=== PATIENT | male | born 1995 | race Caucasian/White ===

== ENCOUNTER 2016-10-01 20:19 | Emergency (ER) | payer BC, OTHER ==
[~2016-10-01] VITALS: Ht 172.7 cm; Wt 88.5 kg
--- NOTE | 2016-10-01 20:33 | ED Abdominal Pain ---
General Chief Complaint: Abdominal/GI Problems Stated Complaint: ABD PAIN Source of Information: Patient Exam Limitations: No Limitations History of Present Illness Time Seen By Provider: 20:31 Initial Comments To ER with pain to the right side of the abdomen in the lower quadrant that began earlier this afternoon. He's had some nausea with this but no vomiting. He states that he stood up from the table and felt an intense pain and nearly passed out because of pain. Since then has been a dull ache to the right lower quadrant. No diarrhea. No history of this pain. Timing/Duration: 4-6 Hours Severity/Quality: Moderate Location: RLQ Allergies and Home Medications Allergies Coded Allergies: No Known Drug Allergies (Unverified , 10/01/16) Home Medications No Active Prescriptions or Reported Meds Review of Systems Constitutional: see HPI, diaphoresis EENTM: No Symptoms Reported Respiratory: No Symptoms Reported Cardiovascular: No Symptoms Reported Gastrointestinal: See HPI, Abdominal Pain, Denies Constipated, Denies Diarrhea , Nausea Musculoskeletal: no symptoms reported Skin: no symptoms reported Psychiatric/Neurological: No Symptoms Reported Endocrine: No Symptoms Reported Past Jryiucc-Eztvmy-Tlzizw Hx Patient Social History Recent Foreign Travel: No Contact w/Someone Who Travel: No Physical Exam Vital Signs VS - Last 72 Hours, by Label 10/01/16 20:24 Temp 97.4 Pulse 75 Resp 20 B/P (MAP) 141/92 Pulse Ox 20 O2 Delivery Room Air Capillary Refill : General Appearance: WD/WN, no apparent distress HEENT: PERRL/EOMI, normal ENT inspection Neck: non-tender, full range of motion Respiratory: no respiratory distress, no accessory muscle use Gastrointestinal: normal bowel sounds, soft, tenderness Extremities: normal range of motion, non-tender Neurologic/Psychiatric: alert, normal mood/affect, oriented x 3 Skin: normal color, warm/dry Progress/Results/Core Measures Results/Orders Lab Results Laboratory Tests Test 10/01/16 20:30 10/01/16 21:04 Range/Units White Blood Count 8.0 4.3-11.0 10^3/uL Red Blood Count 5.14 4.35-5.85 10^6/uL Hemoglobin 14.5 13.3-17.7 G/DL Hematocrit 43 40-54 % Mean Corpuscular Volume 83 80-99 FL Mean Corpuscular Hemoglobin 28 25-34 PG Mean Corpuscular Hemoglobin Concent 34 32-36 G/DL Red Cell Distribution Width 12.9 10.0-14.5 % Platelet Count 226 130-400 10^3/uL Mean Platelet Volume 10.2 7.4-10.4 FL Neutrophils (%) (Auto) 57 42-75 % Lymphocytes (%) (Auto) 32 12-44 % Monocytes (%) (Auto) 8 0-12 % Eosinophils (%) (Auto) 3 0-10 % Basophils (%) (Auto) 1 0-10 % Neutrophils # (Auto) 4.5 1.8-7.8 X 10^3 Lymphocytes # (Auto) 2.5 1.0-4.0 X 10^3 Monocytes # (Auto) 0.7 0.0-1.0 X 10^3 Eosinophils # (Auto) 0.2 0.0-0.3 10^3/uL Basophils # (Auto) 0.0 0.0-0.1 10^3/uL Sodium Level 139 135-145 MMOL/L Potassium Level 3.3 L 3.6-5.0 MMOL/L Chloride Level 104 98-107 MMOL/L Carbon Dioxide Level 27 21-32 MMOL/L Anion Gap 8 5-14 MMOL/L Blood Urea Nitrogen 24 H 7-18 MG/DL Creatinine 1.06 0.60-1.30 MG/DL Estimat Glomerular Filtration Rate > 60 BUN/Creatinine Ratio 23 Glucose Level 139 H 70-105 MG/DL Calcium Level 9.2 8.5-10.1 MG/DL Total Bilirubin 0.4 0.1-1.0 MG/DL Aspartate Amino Transf (AST/SGOT) 19 5-34 U/L Alanine Aminotransferase (ALT/SGPT) 21 0-55 U/L Alkaline Phosphatase 33 L 40-136 U/L C-Reactive Protein High Sensitivity 0.10 0.00-0.50 MG/DL Total Protein 6.9 6.4-8.2 GM/DL Albumin 4.6 H 3.2-4.5 GM/DL Urine Color YELLOW Urine Clarity CLEAR Urine pH 5 5-9 Urine Specific [place] 1.020 1.016-1.022 Urine Protein NEGATIVE NEGATIVE Urine Glucose (UA) NEGATIVE NEGATIVE Urine Ketones NEGATIVE NEGATIVE Urine Nitrite NEGATIVE NEGATIVE Urine Bilirubin NEGATIVE NEGATIVE Urine Urobilinogen NORMAL NORMAL MG/DL Urine Leukocyte Esterase NEGATIVE NEGATIVE Urine RBC (Auto) NEGATIVE NEGATIVE Urine RBC NONE /HPF Urine WBC RARE /HPF Urine Squamous Epithelial Cells 0-2 /HPF Urine Crystals NONE /LPF Urine Bacteria NEGATIVE /HPF Urine Casts NONE /LPF Urine Mucus NEGATIVE /LPF Urine Culture Indicated NO My Orders Orders - CLARE GUIDO APRN Cbc With Automated Diff (10/01/16 20:30) Hs C Reactive Protein (10/01/16 20:30) Comprehensive Metabolic Panel (10/01/16 20:30) Ua Culture If Indicated (10/01/16 20:30) Saline Lock/Iv-Start (10/01/16 20:30) Ct Abd/Pelv W (Appendicitis) (10/01/16 20:30) Iohexol Injection (Omnipaque 350 Mg/Ml 1 (10/01/16 20:45) Ns (Ivpb) (Sodium Chloride 0.9% Ivpb Bag (10/01/16 20:45) Medications Given in ED Current Medications Medications Dose Ordered Sig/Coleman Route Start Time Stop Time Status Last Admin Dose Admin Iohexol 100 ml ONCE ONCE IV 10/01/16 20:45 10/01/16 20:46 UNV 10/01/16 20:43 100 ML Sodium Chloride 100 ml ONCE ONCE IV 10/01/16 20:45 10/01/16 20:46 UNV 10/01/16 20:44 80 ML Vital Signs/I&O Vital Sign - Last 12Hours 10/01/16 20:24 Temp 97.4 Pulse 75 Resp 20 B/P (MAP) 141/92 Pulse Ox 20 O2 Delivery Room Air Departure Communication Progress Notes Patient now informs me that he has recently started doing some new abdominal workouts. Impression Impression: Primary Impression: Abdominal wall pain Disposition: 01 HOME, SELF-CARE Condition: Stable Departure-Patient Inst. Decision time for Depature: 20:53 Referrals: NO,LOCAL PHYSICIAN (PCP) Primary Care Physician Patient Instructions: Abdominal Muscle Strain Add. Discharge Instructions: 1. Tylenol and Motrin for pain 2. Return to ER for any concerns 3. Take it easy on your abdominal muscle workouts next few days. Drink lots of water. All discharge instructions reviewed with patient and/or family. Voiced understanding. Scripts No Active Prescriptions or Reported Meds CLARE GUIDO APRN Oct 01, 2016 20:33
[2016-10-01 20:41] LABS: BASOPHILS % (AUTO) 1 % (0-10); EOSINOPHILS # (AUTO) 0.2 10^3/uL (0.0-0.3); EOSINOPHILS % (AUTO) 3 % (0-10); LYMPHOCYTES # (AUTO) 2.5 X 10^3 (1.0-4.0); LYMPHOCYTES % (AUTO) 32 % (12-44); MEAN CORPUSCULAR HEMOGLOBIN 28 PG (25-34); MEAN CORPUSCULAR HGB CONC 34 G/DL (32-36); MEAN CORPUSCULAR VOLUME 83 FL (80-99); MEAN PLATELET VOLUME 10.2 FL (7.4-10.4); MONOCYTES # (AUTO) 0.7 X 10^3 (0.0-1.0); MONOCYTES % (AUTO) 8 % (0-12); NEUTROPHILS # (AUTO) 4.5 X 10^3 (1.8-7.8); NEUTROPHILS % (AUTO) 57 % (42-75); PLATELET COUNT 226 10^3/uL (130-400); RED BLOOD COUNT 5.14 10^6/uL (4.35-5.85); RED CELL DISTRIBUTION WIDTH 12.9 % (10.0-14.5)
[2016-10-01] MEDS ORDERED: IOHEXOL 350 MG/ML 100 ML (OMNIPAQUE 350) VIAL IV ONE (20:45)
[2016-10-01] MEDS ORDERED: NS 100 ML (IVPB) BAG IV ONE (20:45)
[2016-10-01 20:59] LABS: ALANINE AMINOTRANSFERASE 21 U/L (0-55); ALBUMIN 4.6 GM/DL (3.2-4.5); ANION GAP 8 MMOL/L (5-14); ASPARTATE AMINO TRANSFERASE 19 U/L (5-34); BILIRUBIN,TOTAL 0.4 MG/DL (0.1-1.0); BLOOD UREA NITROGEN 24 MG/DL (7-18); BUN/CREATININE RATIO 23; CALCIUM 9.2 MG/DL (8.5-10.1); CARBON DIOXIDE 27 MMOL/L (21-32); CHLORIDE 104 MMOL/L (98-107); CREATININE SERUM 1.06 MG/DL (0.60-1.30); GFR ESTIMATED > 60; GLUCOSE 139 MG/DL (70-105); POTASSIUM 3.3 MMOL/L (3.6-5.0); SODIUM 139 MMOL/L (135-145); TOTAL PROTEIN 6.9 GM/DL (6.4-8.2)
--- NOTE | 2016-10-01 21:03 | Diagnostic Imaging Report ---
PROCEDURE: CT abdomen and pelvis with contrast, rule out appendicitis. TECHNIQUE: Multiple contiguous axial images were obtained through the abdomen and pelvis after the administration of intravenous contrast. INDICATION: Right lower quadrant pain, nausea, and diaphoresis. FINDINGS: Air-containing appendix is nondilated. There is no periappendiceal edema. There is no appendicitis. There is no hydronephrosis. The liver, gallbladder, bile ducts, spleen, adrenals and pancreas were unremarkable. The stomach is distended with ingested material. There is a mildly elevated colonic fecal load, borderline constipation could not be excluded in the appropriate scenario. There is, however, no evidence for fecal impaction or obstruction. There is no pneumatosis or free air. There is no ascites, abscess, hematoma or other fluid collection. There were no focal inflammatory changes identified. Vascular structures unremarkable. The lung bases and the osseous structures nonacute. IMPRESSION: Normal appendix, unobstructed urinary tracts, no focal inflammatory process. Borderline features of constipation without impaction or obstruction. Distention of the stomach by presumed recent ingested material, no evidence for bowel obstruction. No perforation. Dictated by: Dictated on workstation # [id number]
[2016-10-01 21:11] LABS: BILIRUBIN,URINE NEGATIVE (NEGATIVE); KETONES,URINE NEGATIVE (NEGATIVE); LEUKOCYTE ESTERASE ,URINE NEGATIVE (NEGATIVE); NITRITE,URINE NEGATIVE (NEGATIVE); PH,URINE 5 (5-9); PROTEIN,URINE NEGATIVE (NEGATIVE); UROBILINOGEN,URINE NORMAL (NORMAL)
[2016-10-01 21:21] LABS: SQUAMOUS EPITHELIAL CELL,UR 0-2 /HPF; WBC,URINE RARE /HPF
[2016-10-01 21:25] VITALS: BP 141/92
== END 2016-10-01 21:25 | disposition home or self-care (01) ==
LOC: ER 20:22
DX: R10.31 Right lower quadrant pain (principal)
CPT/HCPCS: 36415; 74177; 80053; 81000; 85025; 86141